=== PATIENT | female | born 1935 | race Caucasian/White ===

== ENCOUNTER 2018-05-13 06:58 | Emergency (ER) | payer OTHER ==
[~2018-05-13] VITALS: Ht 157.5 cm; Wt 45.4 kg
[~2018-05-13 06:58] MED LIST: ALEN70TA2; ASPI81CH43; BIOT50006; CALCTAB19; CYAN250T12; LABE100T4; MULTTAB99; POTA10TA75; TRIA50CA40; [UNRECOGNIZED DRUG - CODE]
[2018-05-13] MEDS ORDERED: cloNIDine HCL 0.1 MG TAB PO ONE ×2 (08:30→14:15)
[2018-05-13 08:40] LABS: Basophils # (auto) 0 uL; Basophils % (auto) 0.4 % (0.0-2.0); Eosinophils # (auto) 0.1 uL; Eosinophils % (auto) 0.8 % (0.0-7.0); Hematocrit 43.1 % (36.0-46.0); Hemoglobin 14.4 g/dL (12.2-16.2); Lymphocytes # (auto) 0.8 uL; Lymphocytes % (auto) 9.1 % (10.0-50.0); Mean Corpuscular Hemoglobin 30.9 pg (28.0-32.0); Mean Corpuscular Hgb Conc. 33.3 g/dL (32.0-36.0); Mean Corpuscular Volume 92.9 fL (80.0-100.0); Monocytes # (auto) 0.4 uL; Monocytes % (auto) 4.8 % (0.0-12.0); Neutrophils # (auto) 7.4 uL; Neutrophils % (auto) 84.9 % (37.0-80.0); Platelet Count (auto) 343 10^3/uL (140-450); Red Blood Cells 4.64 10^6/uL (4.0-5.20); Red Cell Distribution Width 15.1 % (11.8-14.3); White Blood Cell 8.7 10^3/uL (4.4-10.8)
[2018-05-13 08:47] LABS: Urine Blood Negative /uL (Negative); Urine Specific Gravity 1.018 (1.001-1.035); Urine WBC 25 /hpf (0 - 5)
[2018-05-13 08:50] LABS: Urine Bacteria MODERATE /hpf (None Seen)
[2018-05-13 08:55] LABS: Albumin 3.3 g/dL (3.4-5.0); Anion Gap 5 (5-15); Blood Urea Nitrogen 22 mg/dL (7-18); Calcium 9.3 mg/dL (8.5-10.1); Carbon Dioxide 29 mmol/L (21-32); Chloride 102 mmol/L (98-107); Glucose 105 mg/dL (74-106); Potassium 3.6 mmol/L (3.5-5.1); Sodium 136 mmol/L (136-145)
[2018-05-13 09:01] LABS: Alanine Aminotransferase 27 U/L (13-56); Alkaline Phosphatase 149 U/L (45-117); Aspartate Aminotransferase 25 U/L (15-37); BUN/Creatinine Ratio 36.7; Bilirubin, Total 0.9 mg/dL (0.2-1.0); GFR African American 123 mL/min; GFR Non-African American 101 mL/min; Total Protein 7.1 g/dL (6.4-8.2)
[2018-05-13] MEDS ORDERED: FOLI1TAB6 PO (10:28)
[2018-05-13] MEDS ORDERED: GASTROGRAFIN 120 ML SOL ONE (10:29)
[2018-05-13] MEDS ORDERED: ONDANSETRON HCL 4 MG/2 ML VIAL ONE (12:42)
[2018-05-13] MEDS ORDERED: ONDANSETRON HCL 4 MG/2 ML VIAL IV ONE ×2 (12:45→13:45)
[2018-05-13] MEDS ORDERED: LORazepam 2MG/ML-1ML VIAL IV ONE (14:15)
[2018-05-13] MEDS ORDERED: LEVE500T22 PO (14:40)
[2018-05-13] MEDS ORDERED: ATOR20TA PO (14:44)
[2018-05-13] MEDS ORDERED: LABETALOL HCL 5 MG/ML 4ML SYRINGE IV ONE (14:56)
[2018-05-13] MEDS ORDERED: LABETALOL HCL 5 MG/ML ML 20ML VIAL IV ONE (15:00)
[2018-05-13] MEDS ORDERED: LEVETIRACETAM 500 MG TAB PO ONE (15:00)
[2018-05-13] MEDS ORDERED: hydrALAZINE HCL 20 MG/ML VL IV ONE ×2 (15:45→18:45)
[2018-05-13] MEDS ORDERED: cefTRIAXone 1GM/50ML D5W 50 ML IV ONE (16:00)
[2018-05-13] MEDS ORDERED: hydrALAZINE HCL 20 MG/ML VL ONE (18:29)
[2018-05-13 19:51] VITALS: BP 140/77
== END 2018-05-13 19:46 | disposition home or self-care (01) ==
LOC: ER 06:58
DX: N39.0 Urinary tract infection, site not specified (principal); Z88.1 Allergy status to other antibiotic agents; Z88.6 Allergy status to analgesic agent; Z88.2 Allergy status to sulfonamides
CPT/HCPCS: 36415; 51702; 71045; 74176; 74250; 80053; 81001; 84484; 85025; 96365; 96375; 96376; 99284; J0360; J0696; J2060; J2405; J3490; Q9963